=== PATIENT | male | born 1985 | race Caucasian/White ===

== ENCOUNTER → 2019-10-11 | Day surgery (SDC) | payer OTHER ==
[~2019-10-11] MED LIST: NOHOMEMEDICATIONS; NORCO 5-325 TA1 EAC1 PO
[2019-10-11 06:55] LABS: HEMATOCRIT 42.5 % (42.0-52.0); HEMOGLOBIN 14.5 gm/dL (14.0-18.0); MCH 29.1 pg (26.0-34.0); MCHC 34.2 g/dL (28.0-37.0); MCV 85.2 fL (80.0-100.0); RBC 4.98 mil/uL (4.50-6.00); RDW-CV 12.6 % (10.5-14.5); WBC 6.7 thou/uL (4.0-11.0)
[2019-10-11 07:03] LABS: CALCIUM 8.5 mg/dL (8.5-10.1); POTASSIUM 4.5 mmol/L (3.5-5.1)
[2019-10-11 07:07] LABS: ALBUMIN 3.6 g/dL (3.4-5.0); TOTAL BILIRUBIN 0.2 mg/dL (<0.1-1.0); TOTAL PROTEIN 7.1 g/dL (6.4-8.2)
--- NOTE | 2019-10-11 12:26 | OP ---
[facility] [address] [place] [address] OPERATIVE REPORT Name: KANU NOVOA Room: [facility]#: [id number] Admission: 10/11/19 Attend Phys: Taz Land Discharge: Date of : 83 Report #: [id number] THIS REPORT FOR: //name// cc: Paddy Flores Adam J DO ~ THIS REPORT FOR: //name// CC: Paddy Land DATE OF SERVICE: 10/11/2019 PREOPERATIVE DIAGNOSIS: Incarcerated umbilical hernia. POSTOPERATIVE DIAGNOSIS: Incarcerated umbilical hernia. OPERATION: Laparoscopic repair of incarcerated umbilical hernia with mesh. SURGEON: Taz Land MD ANESTHESIA: General. ESTIMATED BLOOD LOSS: Minimal. SPECIMEN: None. DESCRIPTION OF PROCEDURE: After informed consent was obtained, the patient was brought to the operating room and placed supine. SCDs were placed and working, preoperative antibiotics were administered, general anesthesia was induced. The abdomen was prepped and draped in the usual sterile fashion. A 5 cm incision was made in the left upper quadrant. A 5 mm trocar was placed under direct vision. Pneumoperitoneum was established. A left-sided 8 mm trocar and a right-sided 5 mm trocar were placed under direct vision. I examined the umbilical hernia. He had a significant amount of omentum, which was trapped inside the hernia. This was all carefully reduced. The defect measured approximately 1.5 cm. I inserted an 11 cm Bard Ventralight mesh. It was brought up to the abdominal wall using a 2-0 Ethibond suture. It was then tacked circumferentially around the mesh using with the absorbable fix tacker. Two transfascial 2-0 Ethibond sutures were placed superiorly and inferiorly in the mesh using a PMI suture passer. The defect was covered widely on all sides. The ports were then removed under direct vision. The skin was closed with 4-0 Monocryl. Incisions were sealed with Dermabond. COMPLICATIONS: [place] [address] OPERATIVE REPORT Name: KANU NOVOA Room: [facility]#: [id number] Admission: 10/11/19 Attend Phys: Taz Land Discharge: Date of : 83 Report #: [id number] DISPOSITION: The patient was taken to recovery in satisfactory condition. <ELECTRONICALLY SIGNED> By: Taz Land MD 10/11/19 1226 [id number] Land MD /nt
== END | disposition home or self-care (01) ==
LOC: M.SUR 06:16
PROVIDERS: Surgery
DX: K42.0 Umbilical hernia with obstruction, without gangrene (principal); K21.9 Gastro-esophageal reflux disease without esophagitis; Z11.59 Encounter for screening for other viral diseases